=== PATIENT | male | born 1945 | race Caucasian/White ===

== ENCOUNTER 2022-09-28 08:45 | Outpatient (RCR) | payer MEDICARE, BC, SELFPAY ==
[2022-09-28 09:30] LABS: Potassium* 4.2 mmol/L (3.6-5.1)
[2022-09-28 09:32] LABS: Estimated Glomerular Filt Rate 78 ml/min
[2022-09-28 09:33] LABS: Calcium* 9.5 mg/dL (8.4-10.6); Phosphorus* 3.4 mg/dL (2.5-4.5)
== END 2022-09-30 12:39 | disposition home or self-care (01) ==
LOC: LAB 08:45
PROVIDERS: PCP Family Medicine
DX: C91.10 Chronic lymphocytic leukemia of B-cell type not having achieved remission (principal)
CPT/HCPCS: 36415; 82310; 82565; 84100; 84132; 84550

== ENCOUNTER 2025-08-20 18:48 | Emergency (ER) | payer MEDICARE, BC, SELFPAY ==
--- OUTSIDE RECORDS SUMMARY | 2025-08-20 18:50 | XMS_ITS | Encounter Summary ---
Author Organization [facility] Address [address] [place] [address] Care Team Providers Care Wrapping Machine Tender Name Role Phone Elsewhere, Pcp Primary Care Provider Unavailabl e Encounter Details Date Type Department Care Team (Late st Contact Info) Description 01/09/2014 Historical Ophthalmology RST O[facility] Javan Clancy M.D. 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 - 01/09/2014 9:09 AM CDT Eye General CHIEF COMPLAINT 1 month recheck HISTORY OF PRESENT ILLNESS Patient notes extreme improvement over past 2 months! IMPRESSION / REPORT / PLAN #1 Herpes simplex keratitis, right eye Quiet. Plan: ACV 400mg 2x/day for prophylaxis. Prednisolone acetate to 1% 1x/day right eye Recheck in 2-3 months....REFRACT NEXT VISIT. Consider scleral in future? #2 Pterygium, right eye Most likely related to #1, and thus pseudopterygium Close to visual axis, but much less engorged today. Defer surgical intervention at this time. (Might need AMT or tars because of #3) #3 Neurotrophic keratopathy, right eye Absent sensation Discussed. Tear film adequate right now. Observe. #4 Convergence insufficiency Observe for now. #5 Amblyopia, right eye Presumed given #1 began at age 4. DIAGNOSIS #1 Herpes simplex keratitis, right eye #2 Pterygium, right eye #3 Neurotrophic keratopathy, right eye #4 Convergence insufficiency #5 Amblyopia, right eye CDM Reports - EYEGEN Id: [id number] Status: Fnl documented in this encounter Plan of Treatment Not on file documented as of this encounter Visit Diagnoses Not on filedocumented in this encounter Additional Health Concerns Infection Onset Date Last Indicated Resolved Time Protective Environment 02/04/2023 02/04/202311/21 5:00 AM SCREEN PRINTER documented as of this encounter Care Teams Wrapping Machine Tender Relationship Specialty Start Date End Date Elsewhere, Pcp PCP - General Family Medicine 06/24/21 documented as of this encounter
--- OUTSIDE RECORDS SUMMARY | 2025-08-20 18:50 | XMS_ITS | Encounter Summary ---
Author Organization [facility] Address [address] [place] [address] Care Team Providers Care Whipped Topping Supervisor Name Role Phone Elsewhere, Pcp Primary Care Provider Unavailabl e Encounter Details Date Type Department Care Team (Late st Contact Info) Description 07/30/2025 Documentation Department of Neurology in [place], [place] [address] [place] [address] Wolf Mcelroy M.D. [address] [place] [phone] Social History Tobacco Use Types Packs/Day Years Used Date Smoking Tobacco: Never Smokeless Tobacco: Never Alcohol Use Standard Drinks/Week Comments Yes 2 (1 standard drink = 0.6 oz pur e alcohol) [facility] Utilities Answer Date Recorded In the past 12 months has e electric, gas, oil, or water company threatened to shut off services in your home? No 11/25/2024 Humiliation, Afraid, Rape, and Kick questionnair e Answer Date Recorded Within the last year, have y ou been afraid of your partner or ex-partner? No 08/11/2022 Within the last year, have y ou been humiliated or emotionally abused in other ways by your partner or ex-partner? No Within the last year, have y ou been kicked, hit, slapped, or otherwise physically hurt by your partner or ex-partner? No 08/11/2022 Within the last year, have y ou been raped or forced to have any kind of sexual activity by your partner or ex-partner? No 08/11/2022 Hunger Vital Sign Answer Date Recorded Within the past 12 months, y ou worried that your food would run out before you got the money to buy more. Never true 11/25/19 25 Within the past 12 months, t he food you bought just didn't last and you didn't have money to get more. Never true 11/25/2024 PRAPARE - Transportation Answer Date Re corded In the past 12 months, has l ack of transportation kept you from medical appointments or from getting medications? No 11/01 In the past 12 months, has l ack of transportation kept you from meetings, work, or from getting things needed for daily living? No 11/25/2024 Depression Answer Date Recor ded PHQ-9 Total Score (max 27) 3 08/11 Housing Stability Answer Date Recorded What is your living situation today? I have a [facility] place to live 11/25/2024 Education Answer Date Recorded What is the highest level of school you have completed or the highest degree you have received? 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 He will no longer be operating a motor vehicle. documented in this encounter Plan of Treatment Not on file documented as of this encounter Visit Diagnoses Not on filedocumented in this encounter Additional Health Concerns Assessment Noted Time PHQ-9 Depression Total Score: 3 08/11/20 22 9:23 AM CDT documented as of this encounter Care Teams Whipped Topping Supervisor Relationship Specialty Start Date End Date Elsewhere, Pcp PCP - General Family Medicine 06/24/21 documented as of this encounter
--- OUTSIDE RECORDS SUMMARY | 2025-08-20 18:50 | XMS_ITS | Encounter Summary ---
Author Organization [facility] Address [address] [place] [address] Care Team Providers Care Delinquent Account Clerk Name Role Phone Elsewhere, Pcp Primary Care Provider Unavailabl e Encounter Details Date Type Department Care Team (Late st Contact Info) Description 12/04/2013 Historical Ophthalmology [facility]ST O[facility] Javan Clancy M.D. [address] [place] [address] Social History Tobacco Use Types Packs/Day Years Used Date Smoking Tobacco: Never Assessed Sex and Gender Information Value Date Recorded Sex Assigned at Male 03/26/2018 9:59 PM CDT Legal Sex Male 5:22 AM SPECIFICATION MANAGER Gender Identity Male 01/29/2021 9:30 AM CDT Sexual Orientation Straight 05/12/2021 11 :54 AM CDT documented as of this encounter Progress Notes * Javan Clancy M.D. - 12/04/2013 2:33 PM CST Eye General CHIEF COMPLAINT 1 week return right eye HISTORY OF PRESENT ILLNESS Patient return for a 1 week check up on the right eye. Using ACY 4x day for 7 days and then 2x day.PF 2x day right eye only. Significant improvement for the first few days after he was here and then stable since then. Still has some discomfort and redness but better than it was. IMPRESSION / REPORT / PLAN #1 Herpes simplex keratitis, right eye Stromal inflammation improving. Plan: ACV 400mg 2x/day for prophylaxis. Decreased Prednisolone acetate to 1% 1x/day right eye Recheck in 1 month and get SL photos then. Consider scleral in future? #2 Pterygium, right eye Most likely related to #1, and thus pseudopterygium Close to visual axis, but much less engorged today. Defer surgical intervention at this time. (Might need AMT or tars because of #3) #3 Neurotrophic keratopathy, right eye Absent sensation Discussed. Tear film adequate right now. Observe. #4 Convergence insufficiency Observe for now. DIAGNOSIS #1 Herpes simplex keratitis, right eye #2 Pterygium, right eye #3 Neurotrophic keratopathy, right eye #4 Convergence insufficiency CDM Reports - EYEGEN Id: [id number] Status: Fnl documented in this encounter Plan of Treatment Not on file documented as of this encounter Visit Diagnoses Not on filedocumented in this encounter Additional Health Concerns Infection Onset Date Last Indicated Resolved Time Protective Environment 02/04/2023 02/04/202311/21 5:00 AM SPECIFICATION MANAGER documented as of this encounter Care Teams Delinquent Account Clerk Relationship Specialty Start Date End Date Elsewhere, Pcp PCP - General Family Medicine 06/24/21 documented as of this encounter
--- OUTSIDE RECORDS SUMMARY | 2025-08-20 18:50 | XMS_ITS | Encounter Summary ---
Author Organization [facility] Address [address] [place] [address] Care Team Providers Care Software Implementation Specialist Name Role Phone Elsewhere, Pcp Primary Care Provider Unavailabl e Encounter Details Date Type Department Care Team (Late st Contact Info) Description 11/19/2013 Historical Ophthalmology [facility]ST OPH Javan Clancy M.D. [address] [place] [address] Social History Tobacco Use Types Packs/Day Years Used Date Smoking Tobacco: Never Assessed Sex and Gender Information Value Date Recorded Sex Assigned at Male 03/26/2018 9:59 PM CDT Legal Sex Male 5:22 AM HAND COKE DRAWER Gender Identity Male 01/29/2021 9:30 AM CDT Sexual Orientation Straight 05/12/2021 11 :54 AM CDT documented as of this encounter Progress Notes * Javan Clancy M.D. - 11/19/2013 9:34 AM CST Eye General CHIEF COMPLAINT Pterygium right eye HISTORY OF PRESENT ILLNESS History of Herpes Simplex right eye since age [age]. Intermittent irritation right eye over many years. Decreased vision right eye since childhood, worse since pterygium Increased irritation right eyeover the past year, due to pterygium. Pterygium diagnosed in May. Moderate to significant irritation since May, treated by Dr. Laughlin with various medications. Improvement with Prednisolone. Finished last round of Prednisolone last week. Increased redness since stopping prednisolone. Ulceration at edge of pterygium treated with erythromycin and Voltaren, about two weeks ago. Bandage lens worn for a few days. History of dry eyes for the past 3-4 years, primarily uses hot packs and artificial tears. Very light sensitive. Notes eye strain at near for years. This past week has noted diplopia at near, most of the time. 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 VIsion getting worse, and having irritation and light sensitivity in right eye. Recently treated for ulceration with topical steroid and bandage lens. Has active cold sores. IMPRESSION / REPORT / PLAN #1 Pterygium, right eye Most likely related to #2, and thus pseudopterygium Close to visual axis and should be removed, but control #2 first. Might need AMT or tars because of#3. #2 Herpes simplex keratitis, right eye With stromal inflammation....foci at leading edge of pterygium Discussed Plan: ACV 400mg 4x/day for 1 week, then 2x/day for prophylaxis. Prednisolone acetate 1% 2x.day right eye Get SL photos right eye.......Photo Interpretation: Photos confirm and document clinical findings of diagnosis and are of sufficient quality to permit their use to follow disease progression. Recheck in 1 week. #3 Neurotrophic keratopathy, right eye Absent sensation Discussed. Tear film adequate right now. Observe. DIAGNOSIS #1 Pterygium, right eye #2 Herpes simplex keratitis, right eye #3 Neurotrophic keratopathy, right eye CDM Reports - EYEGEN Id: [id number] Status: Fnl documented in this encounter Plan of Treatment Not on file documented as of this encounter Visit Diagnoses Not on filedocumented in this encounter Additional Health Concerns Infection Onset Date Last Indicated Resolved Time Protective Environment 02/04/2023 02/04/202311/21 5:00 AM HAND COKE DRAWER documented as of this encounter Care Teams Software Implementation Specialist Relationship Specialty Start Date End Date Elsewhere, Pcp PCP - General Family Medicine 06/24/21 documented as of this encounter
--- OUTSIDE RECORDS SUMMARY | 2025-08-20 18:50 | XMS_ITS | Clinical Summary ---
Author Organization [facility] Address [address] [place] [address] Care Team Providers Care Process Technician Name Role Phone Marisol Mckeon MD Unavailable Tacho Flores MD Unavailable Valente Murry MD Unavailable [phone] Jay Mcnamara MD Unavailable Unavailable Villa Huddleston MD Unavailable [phone] Alexander Crockett MD Unavailable Elbert Espino MD Primary Care Provider [phone] [facility] [place] Unavailable Allergies Active Allergy Reactions Criticality Noted Date Comments Iodinated Contrast Media Other - Describ e In Comment Field Low 12/13/2012 Medications MULTIVITAMIN TAB take 1 tablet by oral route once daily with food 0 8 Active VITAMIN B COMPLEX TAB one daily 0 9 Active acyclovir (ZOVIRAX) 400 mg tablet Take 400 mg by mouth 2 times daily. 1 Active prednisoLONE acetate 1% ophthalmic (ECONOPRED PLUS, PRED FORTE, OMNIPRED) suspension Place 1 Drop into right eye once daily. 2 Active propylene glycoL (Systane Complete) 0.6 % ophthalmic solution Place into the eye(s). Active fish oil-omega-3 fatty acids 300-1,000 mg Take 1 Capsule by mouth once daily. Active cholecalciferol (Vitamin D) 1,000 unit capsule Take 1,000 units by mouth once daily. Active sertraline (ZOLOFT) 100 mg tabletIndicatio ns:Recurrent major depressive disorder, in partial remission Take 1 Tablet (100 mg) by mouth once daily in the morning. 135 Tablet 4 5 Active traZODone (DESYREL) 50 mg tabletIndicatio ns:Alzheimer's disease (HC) Take 1/2 tab as needed for evening hallucination s. 31 Tablet 1 5 Active cholecalciferol (Vitamin D-3) 2,000 unit capsule 1 08/13/20 25 Discontinu ed(*Medica tion adjustment ) docosanol 10 % (ABREVA) 10 % cream Apply topically to affected area(s) one time if needed. 08/13/20 25 Discontinu ed(*Patien t states no longer taking) sertraline (ZOLOFT) 100 mg tabletIndicatio ns:Recurrent major depressive disorder, in partial remission Take 1 Tablet (100 mg) by mouth once daily in the morning. 90 Tablet 4 5 08/15/20 25 Discontinu ed(*Medica tion adjustment ) famotidine 20 mg tabletIndicatio ns:Bloating,Hyp eractive bowel sounds Take 1 Tablet (20 mg) by mouth two times daily. 90 Tablet 5 08/08/20 25 Discontinu ed(*Med complete/R egimen complete/L evel of care change) Active Problems Problem Noted Date Diagnosed Date Mild dementia 07/24/2025 Alzheimer's disease 07/23/2025 Skin cancer 03/06/2025 Overview (03/06/2025): 05/17/24 - Right Zygomatic Area - SCCis: MOHS completed through [place] Recurrent major depressive disorder, in partial remission 01/02/2025 CLL (chronic lymphocytic leukemia) 01/02/2025 Overview (01/02/2025): In Remission. Because of his CLL, his [facility] Oncologist stated that he would benefit from an infusion for COVID-19 if he gets it. He had bad rebound from Paxlovid. [facility] recommended Remdesivir. Mild cognitive impairment 01/24/2024 Overview (03/28/2024): This was diagnosed at the [facility] in 2021. 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 Laughlin of Optometry prescribes the acyclovir for ocular herpes. Myocardiopathy 01/13/2021 Sleep disturbance 08/30/2019 Routine adult health maintenance 01/21/2015 Overview (01/02/2025): Colonoscopy 12/2014 normal. No follow up recommended. CLL (chronic lymphocytic leukemia) 01/30/2013 Overview (12/08/2022): Diagnosed in about 2011. Doing well as of 12/08/2022. Just 2 more infusions and oral Venetoclax until 08/2023. Tinea versicolor 09/20/2012 Osteoarthritis left ankle 08/04/2011 Hypertrophic obstructive cardiomyopathy 05/20/20 09 Overview (10/18/2023): Cardiomyopathy Hypertrophic Personal history of malignant melanoma of skin 0 03/06/2009 Overview (03/06/2025): malignant melanoma, B[place]low depth of 1.6mm involving the left cheek. The biopsy was in February of 2009 and was reexcised by plastic surgery with negative margins. Resolved Problems Problem Noted Date Diagnosed Date Resolved Date Depression, recurrent 01/12/20212023 Overview (01/12/2021): He has had this since about 2006. He has been on and off Sertraline over the years and just feels better on the Sertraline. Encounters Date Type Department Care Team Description 08/15/2025 8:45 AM CDT Office Visit [facility] [address] [place] [address] Rashad Gordon MD Follow Up (E consult and home health visit) 08/15/2025 Telephone [facility] [address] [place] [address] Elbert Espino MD Appointment Request 08/15/2025 Travel 08/13/2025 10:00 AM CDT Home Care Visit [facility] [address] [place] [address] Pedrito Martinez, PT PT - OASIS START OF CARE 08/13/2025 Telephone [facility] [address] [place] [address] Pedrito Martinez, PT Home Care (One time home care visit and recommendation for outpatient therapy) 08/13/2025 Home Care Visit [facility] [address] [place] [address] Pedrito Martinez, PT EPISODE DISCHARGE 08/13/2025 Plan of Care Documentation [facility] [address] [place] [phone] 08/13/2025 Travel 08/08/2025 9:35 AM CDT Office Visit [facility] [address] [place] [address] Rashad Gordon MD Follow Up (Memory loss, Alzheimer's, seems more anxious) 08/08/2025 E-Consult [facility] [address] [place] [address] Ning Cortes DO 08/07/2025 11:00 AM CDT Office Visit [facility] [address] [place] [address] Rashad Santana PsyD, Family Therapy 08/07/2025 Travel 08/06/2025 Telephone [facility] [address] [place] [address] Rashad Santana PsyD, LP Appointment (08/07 - can be present? ) 08/04/2025 Travel 08/03/2025 Travel 07/26/2025 12:47 PM CDT - 07/26/2025 11:59 PM CDT Hospital Encounter [facility] [place] [address] [facility] [address] [place] [address] Wolf Mcelroy Htet, Viola, OT 07/26/2025 Travel 07/24/2025 11:20 AM CDT Office Visit [facility] [address] [place] [address] Elbert Espino MD Memory Loss (Discuss Alzheimer's progression - hallucinations 2 nights ago) 07/23/2025 2:30 PM CDT Office Visit [facility] [address] [place] [address] Rashad Gordon MD Concerns (Diagnosed with Alzheimer's disease, hallucinations for several nights) 07/23/2025 Travel 06/19/2025 11:00 AM CDT Office Visit [facility] [address] [place] [address] Rashad Santana PsyD, LP Individual Therapy 06/19/2025 Travel 06/17/2025 Travel from Last 3 Months Immunizations Immunization Administration Dates Next Due AMB INFLUENZA IIV3 (AGE 65+ YRS) PF (Flu Clinic Only) 08/03/2019,08/17/2017 Amb Influenza, Inact (High-d ose) (Flu Clinic Only) 08/20/2014 Amb Influenza, Inactivated A IIV4 (Age 65+ Years) Preserv Free 08/05/2020 COVID-19 vaccine ([employer] 30mcg/0.3mL) PFMDV 01/07/2021,12/17/2020 DTaP 05/08/2008 Hepatitis A (Adult) 01/30/2010,02/06/2002 Hepatitis B (Adult) 10/01/2002,03/09/2002,2001 Inactivated Polio Vaccine 02/06/2002 Influenza, High-dose Inactivated 024,08/19/2016,08/19/2015,08/20,07/10/2013 Influenza, High-dose Quadriv alent Inactivated 09/02/2023,08/19/2022,08/01/2021 Influenza, IIV3 (Age >=3 years) 07/25/2013,10/06 Influenza, Inactivated IIV3 (Age 65+ Years) Preserv Free 08/10/2018,08/17/2017 Pneumococcal Poly,23-Valent (Pneumovax) 01/30/2013 Pneumococcal conj 13-Valent (Prevnar 13) 09/19/2014 Pneumococcal, Unspecified 07/17/2013 RSV, Recombinant ADJ Reconst ituted (Arexvy 120MCG/0.5mL) 09/13/2023 Td (Age >=7 Years) 02/22/2018 Tdap 05/08/2008 Typhoid (injectable) 02/06/2002 Zoster (Shingrix-RZV, recombinant) 10/26/2019, Family History Medical History Relation Name Comments Alzheimer's disease Father at 90 Cancer-prostate Father Hypertension Mother Parkinsonism Mother other Mother in her 80s of unknown cause. Cancer Sister thyroid - resol deep Relation Name Status Comments Father (Age 90) Maternal Aunt Mother (Age 84) Sister Alive Social History Tobacco Use Types Packs/Day Years Used Date Smoking Tobacco: Never Passive Smoke Exposure: Never Smokeless Tobacco: Never Tobacco Cessation:Counseling Given: Yes Alcohol Use Standard Drinks/Week Comments Not Currently 0 (1 standard drink = 0.6 oz pur e alcohol) every other week PHQ-2 Answer Date Recorded PHQ-2 TOTAL SCORE 2 08/08/2025 Social Connections Answer Date Recorded Do you often feel lonely or isolated from those around you? 0 04/24/2025 Alcohol Use Answer Date Recorded How often do you have a drink containing alcohol ? 1 08/08/2025 How many drinks containing a lcohol do you have on a typical day when you are drinking? 0 08/08/2025 How often do you have five or more drinks on one occasion? 0 08/08/2025 Financial Resource Strain Answer Date R ecorded Difficulty of Paying Living Expenses 3 04/24/2025 Difficulty of Paying Living Expenses Not on file 04/24/2025 Food Insecurity Answer Date Recorded Do you worry your food will run out before you are able to buy more? 1 04/24/2025 Transportation Needs Answer Date Record ed Does lack of transportation keep you from medica l appointments? 1 04/24/2025 Does lack of transportation keep you from work, meetings or getting things that you need? 1 04/24/2025 Housing Stability Answer Date Recorded What is your housing situation today? 1 04/24/2025 Utilities Answer Date Recorded Do you have trouble paying f or utilities (for example, heat, electricity, water, phone)? 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 Not on file Not on file Not on sharon e Obstetrics History Last Filed Vital Signs Vital Sign Reading Time Taken Comments Blood Pressure 114/70 08/15/2025 8:48 AM CDT Pulse 46 08/15/2025 8:48 AM CDT Temperature 36.9 C (98.5 F) 08/13/2025 10:05 AM CDT Respiratory Rate 18 08/13/2025 10:05 AM CDT Oxygen Saturation 98% 08/15/2025 8:48 AM CDT Inhaled Oxygen Concentration - - Weight 80.6 kg (177 lb 9.6 oz) 08/15/2025 8:48 A M CDT Height 176.8 cm (5' 9.6) 08/15/2025 8:48 AM CDT Body Mass Index 25.78 08/15/2025 8:48 AM CDT Plan of Treatment Upcoming Encounters Date Type Department Care Team (Late st Contact Info) Description 08/29/2025 9:35 AM CDT Office Visit [facility] [address] [facility] [address] Rashad Gordon MD [address] [place] [address] 09/11/2025 11:15 AM NURSE LDR Office Visit [facility] [address] [address] Maria Fernanda Cain, [address] [place] [address] 10/04/2025 10:05 AM NURSE LDR Office Visit [facility] [address] [place] [address] Elbert Espino MD [address] [place] [address] 01/01/2026 8:45 AM NURSE LDR Orders Only [facility] [address] [place] [address] Meche Harris 01/07/2026 8:45 AM CDT Office Visit [facility] [address] [place] [address] Elbert Espino MD [address] [place] [address] Health Maintenance Due Date Last Done Comments COVID-19 vaccine series (2024- season) 2025 03/27/2025, 07/23/2024, 02/08/2024, Additional history exists Influenza Vaccine (#1) 2025 , 08/05/2020, 08/03/2019, Additional history exists Medicare Wellness for age 65+ 01/03/2026, 02/01/2024, 12/08/2022, Additional history exists Depression screening for age 12+ 08/08/2026 08/08/2025, 01/02/2025, 03/28/2024, Additional history exists BMI (ht and wt on same day) for age 18+ 08/15/2026 08/15/2025, 08/08/2025, 07/23/2025, Additional history exists Tetanus booster 02/23/2028 02/22/2018, 05/08/2008 Hepatitis B series for 19+ Completed 10/01, 03/09/2002, 02/06/2002 Pneumococcal series for age 50+ Completed 09/19/2014, 07/17/2013, 01/30/2013 Zoster (shingles) series for age 50+ Completed 10/26/2019, 08/15/2019 RSV vaccine for adults or Completed 09/13/2023 Procedures Procedure Name Priority Date/Time Associated Diagnosis Comments URINE CULTURE Routine 07/23/2025 3:10 PM CDT Dysuria URINALYSIS MICROSCOPIC Routine 07/23/2025 3:10 PM CDT Dysuria URINALYSIS MACROSCOPIC - [facility] ONLY POC DIP (QUEST) Routine 07/23/2025 3:10 PM CDT Dysuria from Last 3 Months Results * (ABNORMAL) POCT Urinalysis Dipstick Only (07/23/2025 3:10 PM CDT) SPECIFIC GRAVITY 1.025 1.001 - 1.035 07/23/2025 3:18 PM CDT [facility] PROTEIN NEGATIVE NEGATIVE 07/23/2025 3:18 PM CDT [facility] GLUCOSE NEGATIVE NEGATIVE 07/23/2025 3:18 PM CDT [facility] KETONES TRACE(A) NEGATIVE 07/23/2025 3:18 PM CDT [facility] BILIRUBIN NEGATIVE NEGATIVE 07/23/2025 3:18 PM CDT [facility] OCCULT BLOOD NEGATIVE NEGATIVE 07/23/2025 3:18 PM CDT [facility] NITRITE NEGATIVE NEGATIVE 07/23/2025 3:18 PM CDT [facility] PH 6.0 5.0 - 8.0 07/23/2025 3:18 PM CDT [facility] LEUKOCYTE ESTERASE 1+(A) NEGATIVE 07/23/2025 3:18 PM CDT [facility] Urine URINE SPECIMEN / Unknown Non-Blood / Unknown 07/23/2025 3:10 PM CDT 07/23/2025 3:11 PM CDT Rashad Gordon MD URINE Final Re sult [facility] [address] [place] [address], [place] [phone] [facility] [address] [place] [address], [place] [phone] * (ABNORMAL) URINALYSIS MICROSCOPIC (07/23/2025 3:10 PM CDT) RBC 0-2 0-2, None Seen /HPF 07/24/2025 2:12 AM CDT [facility] WBC 11-25(A) 0-2, 3-5, None Seen /HPF 07/24/2025 2:12 AM CDT [facility] BACTERIA Few None Seen, Rare, Few Bacteria/ HPF 07/24/2025 2:12 AM CDT [facility] EPITHELIAL CELLS Moderate(A ) None Seen, Few Epi/HPF 07/24/2025 2:12 AM CDT [facility] HYALINE CASTS 0-2 0-2, 3-5 /LPF 07/24/2025 2:12 AM CDT [facility] CALCIUM OXALATE CRYSTALS Present(A) (none) 07/24/2025 2:12 AM CDT [facility] Urine URINE SPECIMEN / Unknown Non-Blood / Unknown 07/23/2025 3:10 PM CDT 07/23/2025 3:11 PM CDT Rashad Gordon MD URINE Final Re sult [facility] [address] [place] [id number], * URINE CULTURE (07/23/2025 3:10 PM CDT) CULTURE <10,000 CFU/mL multiple organisms 07/25/2025 9:05 AM CDT [facility] Urine URINE SPECIMEN / Unknown Non-Blood / Unknown 07/23/2025 3:10 PM CDT 07/23/2025 3:11 PM CDT us Rashad Gordon MD MICROBIOLOGY Final Re sult [facility] [address] [place] [phone], [place] from Last 3 Months Insurance MEDICARE PPS [facility] MEDICARE PB ONLY [facility] MEDICARE PART B HB ONLY Advance Directives Documents on File Type Date Recorded Patient Stone Carver Expl anation Healthcare Directive 11/23/2024 10:24 AM s igned 09/10/24 Healthcare Directive 06/14/2018 2:00 PM HE ALTHCARE DIRECTIVE, [facility], 01/11/08 Care Teams Process Technician Relationship Specialty Start Date End Date Elbert Espino MD [address] [place] [address] PCP - General Family Practice 10/07/20 Marisol Mckeon MD Plastic and Reconstructive Surgery 04/15/11 Tacho Flores MD [address] [facility] [place] [address] Sports Medicine 04/15/11 Valente Murry MD [address] [facility] [address] ENT 04/15/11 Anders, Jay Villanueva MD [address] [place] [address] Internal Medicine 01/30/13 Villa Huddleston MD [address] [facility] [place] [address] Dermatology 01/30/13 Alexander Crockett MD [address] [facility] [address] ENT 01/30/13 [facility] [address] [place] [address] 08/09/25
--- OUTSIDE RECORDS SUMMARY | 2025-08-20 18:50 | XMS_ITS | Encounter Summary ---
Author Organization [facility] Address [address] [place] [address] Care Team Providers Care Performance Manager Name Role Phone Elsewhere, Pcp Primary Care Provider Unavailabl e Encounter Details Date Type Department Care Team (Late st Contact Info) Description 06/12/2014 Historical Ophthalmology [facility] John Napoles Social History Tobacco Use Types Packs/Day Years Used Date Smoking Tobacco: Never Assessed Sex and Gender Information Value Date Recorded Sex Assigned at Male 03/26/2018 9:59 PM CDT Legal Sex Male 5:22 AM QUALITY IMPROVEMENT CONSULTANT Gender Identity Male 01/29/2021 9:30 AM CDT Sexual Orientation Straight 05/12/2021 11 :54 AM CDT documented as of this encounter Progress Notes * John Napoles - 06/12/2014 10:00 AM CDT Contact Lens Exam MULTI-VISIT DOCUMENT This document contains multiple patient visits and is available for review in Document Viewer. CDM Reports - EYECL Id: [id number] Status: Fnl documented in this encounter Plan of Treatment Not on file documented as of this encounter Visit Diagnoses Not on filedocumented in this encounter Additional Health Concerns Infection Onset Date Last Indicated Resolved Time Protective Environment 02/04/2023 02/04/202311/21 5:00 AM QUALITY IMPROVEMENT CONSULTANT documented as of this encounter Care Teams Performance Manager Relationship Specialty Start Date End Date Elsewhere, Pcp PCP - General Family Medicine 06/24/21 documented as of this encounter
--- OUTSIDE RECORDS SUMMARY | 2025-08-20 18:50 | XMS_ITS ---
Author Organization [facility] Address [address] [place] [address] Care Team Providers Care Project Scientist Name Role Phone Elsewhere, Pcp Primary Care Provider Unavailabl e Active Problems * This document contains information received from the source organization and may not represent a complete record from that organization. 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 11/29/2024 Reaction Drug Adverse Initial 09/07/2022 Encounter Admission For Chemotherapy 08/23/2022 Other Waiter/Waitress Buffet Current Drug Therapy 08/20/2022 Encounter For Antineoplastic Chemotherapy 2021 Screening Examination For Viral Disease 08/20/20 22 Anemia 06/07/2022 Thrombocytopenia 03/06/2020 Chronic Lymphocytic Leukemia Of B Cell Type Not Having Achieved Remission 12/27/2012 Cardiomyopathy Obstructive Hypertrophic 05/20/20 09 Overview (03/22/2017): Cardiomyopathy Hypertrophic Melanoma Personal History 03/06/2009 Current Treatment and Therapy Plans No current plan information found. Past Treatment and Therapy Plans Flushes/Hydration Plan Name Start Date Discontinue Date Treatment Medications Discontinue Reason Plan Provider VASCULAR ACCESS PATENCY - PERIPHERAL INTRAVENOUS CATHETER AND RAPID INFUSION CATHETER 09/07/2022 09/01/2023 No medications scheduled. Therapy Complete - Hematology / Oncology Treatment 1 Plan Name Start Date Discontinue Date Treatment Medications Discontinue Reason Plan Provider Cycles Obinutuzumab (Split Dose) / Venetoclax 09/06/2004/23/2024 obinutuzumab (Gazyva)veneto clax (Venclexta) Discontinuation of Plans with No Action >1 year-System Maintenance Matty Springer M.D. 6 of 7 cycles started Infusion Therapy 1 Plan Name Start Date Discontinue Date Treatment Medications Discontinue Reason Plan Provider TIXAGEVIMAB-CILGAV IMAB (EVUSHELD) - EMERGENCY USE AUTHORIZATION 09/20/2022 09/20/2022 No medications scheduled. Patient Preference Matty Springer M.D. Resolved Problems Problem Noted Date Diagnosed Date Resolved Date Clinical Research Exam 03/30/201803/06
--- OUTSIDE RECORDS SUMMARY | 2025-08-20 18:50 | XMS_ITS | Encounter Summary ---
Author Organization [facility] Address [address] [place] [address] Care Team Providers Care Neonatal Pediatric Nurse Name Role Phone Elsewhere, Pcp Primary Care Provider Unavailabl e Encounter Details Date Type Department Care Team (Late st Contact Info) Description 03/20/2014 Historical Ophthalmology [facility] Javan Clancy M.D. [address] [place] [address] Social History Tobacco Use Types Packs/Day Years Used Date Smoking Tobacco: Never Assessed Sex and Gender Information Value Date Recorded Sex Assigned at Male 03/26/2018 9:59 PM CDT Legal Sex Male 5:22 AM FEDERAL JUDICIAL LAW CLERK Gender Identity Male 01/29/2021 9:30 AM CDT Sexual Orientation Straight 05/12/2021 11 :54 AM CDT documented as of this encounter Progress Notes * Javan Clancy M.D. - 03/20/2014 9:26 AM CDT Eye General CHIEF COMPLAINT recheck HSV right eye HISTORY OF PRESENT ILLNESS Patient notes that things are about the same as when he was last here. Does not that he is red in the mornings until the PF goes in and has slight watering at night as well. He gets some diplopia both with the glasses and without and was told that this is in part due to the right eye. IMPRESSION / REPORT / PLAN #1 Herpes simplex keratitis, right eye Quiet. Plan: ACV 400mg 2x/day for prophylaxis. Prednisolone acetate to 1% 1x/ every other day right eye Recheck in 3 months.... get RGP over-refraction. #2 Pterygium, right eye Most likely related [...] right eye CDM Reports - EYEGEN Id: [id number] Status: Fnl documented in this encounter Plan of Treatment Not on file documented as of this encounter Visit Diagnoses Not on filedocumented in this encounter Additional Health Concerns Infection Onset Date Last Indicated Resolved Time Protective Environment 02/04/2023 02/04/202311/21 5:00 AM FEDERAL JUDICIAL LAW CLERK documented as of this encounter Care Teams Neonatal Pediatric Nurse Relationship Specialty Start Date End Date Elsewhere, Pcp PCP - General Family Medicine 06/24/21 documented as of this encounter
--- OUTSIDE RECORDS SUMMARY | 2025-08-20 18:50 | XMS_ITS | Encounter Summary ---
Author Organization [facility] Address [address] [place] [address] Care Team Providers Care Warper Fixer Name Role Phone Elsewhere, Pcp Primary Care Provider Unavailabl e Encounter Details Date Type Department Care Team (Late st Contact Info) Description 06/12/2014 Historical Ophthalmology [facility] Javan Clancy M.D. [address] [place] [address] Social History Tobacco Use Types Packs/Day Years Used Date Smoking Tobacco: Never Assessed Sex and Gender Information Value Date Recorded Sex Assigned at Male 03/26/2018 9:59 PM CDT Legal Sex Male 5:22 AM EXERCISE PLANNER Gender Identity Male 01/29/2021 9:30 AM CDT Sexual Orientation Straight 05/12/2021 11 :54 AM CDT documented as of this encounter Progress Notes * Javan Clancy M.D. - 06/12/2014 9:46 AM CDT Eye General CHIEF COMPLAINT recheck HSV right eye HISTORY OF PRESENT ILLNESS Patient denies vision changes. Denies ocular discomfort. IMPRESSION / REPORT / PLAN #1 Herpes simplex keratitis, right eye Quiet. RGP over-refraction gave 20/50. Plan: ACV 400mg 2x/day for prophylaxis. Prednisolone acetate to 1% 1x/ every other day right eye. Discussed contact lens risks and benefits....he will call if wants to proceed. Recheck in 6 months with me. #2 Pterygium, right eye Most likely related [...] Presumed given #1 began at age 4. RGP over-refraction, 20/50. DIAGNOSIS #1 Herpes simplex keratitis, right eye #2 Pterygium, right eye #3 Neurotrophic keratopathy, right eye #4 Convergence insufficiency #5 Amblyopia, right eye CDM Reports - EYEGEN Id: [id number] Status: Fnl documented in this encounter Plan of Treatment Not on file documented as of this encounter Visit Diagnoses Not on filedocumented in this encounter Additional Health Concerns Infection Onset Date Last Indicated Resolved Time Protective Environment 02/04/2023 02/04/202311/21 5:00 AM EXERCISE PLANNER documented as of this encounter Care Teams Warper Fixer Relationship Specialty Start Date End Date Elsewhere, Pcp PCP - General Family Medicine 06/24/21 documented as of this encounter
--- OUTSIDE RECORDS SUMMARY | 2025-08-20 18:50 | XMS_ITS | Clinical Summary ---
Author Organization [facility] Address [address] [place] [address] Care Team Providers Care Credit Authorizer Name Role Phone Elsewhere, Pcp Primary Care Provider Unavailabl e Source Comments Patient records contain information from all sites at [facility]. For routine questions regarding patient records, call [phone] during business hours, M-F 8:00 AM - 5:00 PM Central Time. Record requests for emergency care only can be directed to [phone] at any time.[facility] Allergies Active Allergy Reactions Criticality Noted Date Comments Iodinated Contrast Media Other (see comments) Low 0 12/13/2012 Medications * This document contains information received from the source organization and may not represent a complete record from that organization. acyclovir (for_ZOVIRAX) 400 mg tablet Take 1 tablet by mouth 2 (two) times a day. 6 Active VITAMIN B COMPLEX (B COMPLEX-VITAMIN B12 ORAL) Take 1 tablet by mouth daily. 3 Active multivitamin capsule Take 1 tablet by mouth daily. 3 Active cholecalciferol , vitamin D3, 25 mcg (1,000 Unit) tablet Take 1 tablet by mouth daily. 7 Active prednisoLONE acetate (PRED FORTE) 1 % ophthalmic suspension Administer 1 drop into the right eye 3 (three) times a day. 5 Active docosanoL (ABREVA) 10 % cream Apply 1 application topically as needed. For cold sores Active sertraline (ZOLOFT) 100 mg tablet Take 100 mg by mouth daily. 4 Active omega-3 fatty acids-fish oil 300-1,000 mg per capsule Take 1 capsule by mouth daily. 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 11/29/2024 Reaction Drug Adverse Initial 09/07/2022 Encounter Admission For Chemotherapy 08/23/2022 Other Intermediate Current Drug Therapy 08/20/2022 Encounter For Antineoplastic Chemotherapy 2021 Screening Examination For Viral Disease 08/20/20 22 Anemia 06/07/2022 Thrombocytopenia 03/06/2020 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 Date Type Department Care Team Description 07/30/2025 Documentation Department of Neurology in [place], [place] [address] [place] [address] Wolf Mcelroy M.D. 06/26/2025 2:00 PM CDT Telemedicine Department of Neurology in [place], [place] [address] [place] [address] Wolf Mcelroy M.D. Karime Bui, R.N. Impairment Cognitive Mild (Primary Dx); Dementia (HCC); Alzheimer's Disease (HCC) 06/06/2025 1:00 PM CDT Office Visit Division of Hematology in [place], [place] [address] [place] [phone] Amber Crespo APRN, C.N.P., D.N.P. 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 (HCC) Discharge Disposition: Home or Self Care 06/04/2025 10:30 AM CDT Clinical Communication Virtual Review in [place], [place] [address] [place] [address] Pre-visit Intake from Last 3 Months Immunizations Immunization Administration Dates Next Due DTaP (Infanrix, Tripedia) 05/08/2008 Influenza Split 08/20/2014,07/10/2013 PCV13 09/19/2014 Pneumococcal, Unspecified 07/17/2013 SARS-COV-2 (COVID-19) - PFIZ ER (Discontinued)(12 years or older) 06/24/2021 Tdap 05/08/2008 Family History Medical History Relation Name Comments Dementia Father Juan Wylie Alzheimer's Lymphoma Father Juan Wylie may have had n on-hodkins lymphoma, not sure Prostate cancer Father Juan Wylie Skin cancer Father Juan Wylie not melanoma Leukemia Father's Brother Corey Wylie Colon polyps Mother Sita Wylie Hypertension Mother Sita Wylie Osteoporosis Mother Sita Wylie Sleep apnea Sister Clarice Bell Thyroid cancer Sister Clarice Bell 1972_+/- Thyroid disease Sister Clarice Bell Relation Name Status Comments Father Juan Wylie Father's Brother Corey Wylie Mother Sita Wylie Sister Clarice Bell Social History Tobacco Use Types Packs/Day Years Used Date Smoking Tobacco: Never Smokeless Tobacco: Never Alcohol Use Standard Drinks/Week Comments Yes 2 (1 standard drink = 0.6 oz pur e alcohol) [facility] Utilities Answer Date Recorded In the past 12 months has [employer], [employer], oil, or water company threatened to shut [...] your living situation today? I have a [facility] place to live 11/25/2024 Education Answer Date Recorded What is the highest level of school you have completed or the highest degree you have received? 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 Gender Identity Male 01/29/2021 9:30 AM CDT Sexual Orientation Straight 05/12/2021 11 :54 AM CDT Last Filed Vital Signs Vital Sign Reading Time Taken Comments Blood Pressure 112/67 06/06/2025 12:51 PM CDT Pulse 57 06/06/2025 12:51 PM CDT Temperature 36.4 C (97.6 F) 06/06/2025 12:51 PM CDT Respiratory Rate 16 09/08/2022 2:14 PM DRY HEAT CABINET ATTENDANT Oxygen Saturation 100% 09/07/2022 11:00 AM DRY HEAT CABINET ATTENDANT Inhaled Oxygen Concentration - - Weight 83.7 kg (184 lb 8.4 oz) 06/06/2025 12:51 PM CDT Height 179 cm (5' 10.47) 06/06/2025 12:51 PM CD T Body Mass Index 26.12 06/06/2025 12:51 PM CDT Plan of Treatment Health Maintenance Due Date Last Done Comments IPV Vaccines (2 of 3 - Adult catch-up series) 03/06/2002 02/06/2002 Fall Risk Screen (Annual) 10/31/2024 COVID-19 Vaccine ( season) 2025 03/27/2025, 07/23/2024, 02/08/2024, Additional history exists Influenza Vaccine (#1) 2025 , 09/02/2023, 08/19/2022, Additional history exists DTaP,Tdap,and Td Vaccines (4 - Td or Tdap) 02/23/2028 02/22/2018, 05/08/2008, 05/08/2008 Pneumococcal vaccine (50+ years) Completed 09/19/2014, 07/17/2013, 01/30/2013 Zoster Vaccines Completed 10/26/2019, 08/15/2019 RSV vaccine - (32-36 weeks) or 50+ years Completed 09/13/2023 HPV Vaccines Aged Out No longer eligi ble based on patient's age to complete this topic Medical Devices Implanted Type Area Continuous Improvement Consultant Device Identifier Shelf Expiration Date Model / Serial / Lot Powder [employer] 2cc Syringe - Chavarria [id number] Implanted:Qty: 1 on 01/15/2013 Mesh or Patch Right: Other/Legacy - See Implant Description Gift Card Combo (Use Allergan) Description:Device Manufactu rer - [employer] Mark. Body Location - Right. Device Status Text - [id number]. 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 (HCC) CBC WITH DIFFERENTIAL, B Routine 025 11:20 AM CDT 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 (HCC) BILIRUBIN, TOT, S/P Routine 06/06/2025 1 1:20 AM CDT 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 (HCC) ASPARTATE AMINOTRANSFERASE (AST), S/P Routine 06/06/2025 11:20 AM CDT 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 (HCC) ALKALINE PHOSPHATASE, S/P Routine 06/06/2025 11:20 AM CDT 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 (HCC) from Last 3 Months Results * (ABNORMAL) Reticulocyte Profile (06/06/2025 11:20 AM CDT) Pathologist [facility] [place] Reticulocytes, B 0.83 0.60 - 2.71 % 06/06/2025 11:47 AM CDT DTL Absolute Reticulocyte 32.8 30.4 - 110.9 x10(9)/L 06/06/2025 11:47 AM CDT DTL Immature Reticulocyte Fraction 4.4 2.3 - 13.4 % 06/06/2025 11:47 AM CDT DTL Reticulocyte Hemoglobin 37.0 30.0 - 37.6 pg 06/06/2025 11:47 AM CDT DTL Erythrocytes 3.95(L) 4.35 - 5.65 x10(12)/L 06/06/2025 11:47 AM CDT DTL Blood (Blood, Venous) 06/06/2025 11:20 AM CDT 06/06/2025 11:47 AM CDT Jovanni Colunga APRNN.P., M.S. LAB BLOOD ADD-O N Final Result [facility] [address] [place] [address], [facility] [address] [place] [address] * (ABNORMAL) CBC with Differential, Blood (06/06/2025 11:20 AM CDT) Hemoglobin 12.6(L) 13.2 - 16.6 g/dL 06/06/2025 11:47 AM CDT DTL Hematocrit 38.3 38.3 - 48.6 % 06/06/2025 11:47 AM CDT DTL Erythrocytes 3.95(L) 4.35 - 5.65 x10(12)/L 06/06/2025 11:47 AM CDT DTL MCV 97.0 78.2 - 97.9 fL 06/06/2025 11:47 AM CDT DTL RBC Distrib Width 12.4 11.8 - 14.5 % 06/06/2025 11:47 AM CDT DTL Platelet Count 134(L) 135 - 317 x10(9)/L 06/06/2025 11:47 AM CDT DTL Leukocytes 4.4 3.4 - 9.6 x10(9)/L 06/06/2025 11:47 AM CDT DTL Neutrophils 2.64 1.56 - 6.45 x10(9)/L 06/06/2025 11:47 AM CDT DHPM Lymphocytes 0.88(L) 0.95 - 3.07 x10(9)/L 06/06/2025 11:47 AM CDT DTL Monocytes 0.53 0.26 - 0.81 x10(9)/L 06/06/2025 11:47 AM CDT DTL Eosinophils 0.34 0.03 - 0.48 x10(9)/L 06/06/2025 11:47 AM CDT DTL Basophils <0.03 0.01 - 0.08 x10(9)/L 06/06/2025 11:47 AM CDT DTL Blood (Blood, Venous) 06/06/2025 11:20 AM CDT 06/06/2025 11:47 AM CDT us Leah Colunga APRN.N.Yue., M.S. LAB BLOOD ADD-O N Final Result Performing Organization Address City/[facility]/[place] [address] * AST (Aspartate Aminotransferase) (06/06/2025 11:20 AM CDT) Aspartate Aminotransferase (AST), S 22 8 - 48 U/L 06/06/2025 1:10 PM CDT DTL Blood (Blood, Venous) 06/06/2025 11:20 AM CDT 06/06/2025 12:32 PM CDT Leah Colunga APRN.N.P., M.S. LAB [place] [address] * Alkaline Phosphatase (06/06/2025 11:20 AM CDT) Alkaline Phosphatase, S 53 40 - 129 U/L 06/06/2025 1:10 PM CDT DTL Blood (Blood, Venous) 06/06/2025 11:20 AM CDT 06/06/2025 12:32 PM CDT Nasrin Hutchinson APRN, C.N.P., M.S. LAB BLOOD ADD-O N Final Result Performing Organization Address City/[facility]/ZIP Co de Phone Number [facility] [address] [place] [address] * LD (Lactate Dehydrogenase) (06/06/2025 11:20 AM CDT) Lactate Dehydrogenase (LD), S 176 122 - 222 U/L 06/06/2025 1:10 PM CDT DT Blood (Blood, Venous) 06/06/2025 11:20 AM CDT 06/06/2025 12:32 PM CDT Jovanni Colunga APRNNJessica., M.S. LAB BLOOD NON A DD-ON Final Result Performing Organization Address [facility] de Phone Number [facility] [address] [place] [address] * (ABNORMAL) Immunoglobulin G (IgG) (06/06/2025 11:20 AM CDT) Immunoglobulin G (IgG), S 623(L) 767 - 1590 mg/dL 06/06/2025 4:52 PM CDT [facility] Blood (Blood, Venous) 06/06/2025 11:20 AM CDT 06/06/2025 3:07 PM CDT us Jovanni Colunga APRNN.Yue., M.S. LAB BLOOD ADD-O N Final Result Performing Organization Address City/[facility]/ZIP Co de Phone Number [facility] [address] [place] [address] [place] [address] * Creatinine with Estimated GFR (06/06/2025 11:20 AM CDT) Creatinine 1.00 0.74 - 1.35 mg/dL 06/06/2025 1:10 PM CDT DTL Estimated GFR (eGFR) 77 >=60 mL/min/BSA 06/06/2025 1:10 PM CDT DTL Comment: Estimated GFR calculated using the 2020 CKD_EPI creatinine equation. Blood (Blood, Venous) 06/06/2025 11:20 AM CDT 06/06/2025 12:32 PM CDT us Leah Colunga APRN.N.P., M.S. LAB BLOOD ADD-O N Final Result Performing Organization Address City/[facility]/ZIP Co de Phone Number [facility] [address] [place] [address], [facility] [address] [place] [address] * Bilirubin, Total (06/06/2025 11:20 AM CDT) Bilirubin, Total, S 0.5 0.0 - 1.2 mg/dL 06/06/2025 1:10 PM CDT DTL Blood (Blood, Venous) 06/06/2025 11:20 AM CDT 06/06/2025 12:32 PM CDT us Nasrin Hutchinson APRN C.N.P., M.S. 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 See document viewer. Healthcare Agents on File Name Relationship Healthcare Agent Relationship Communication Liat Wylie Spouse Health Care Agent [email or web address] Ana Wylie Daughter First Alternate Health Care Agent [email or web address] Wylie Son Second Alternate Health Care Agent [email or web address] Credit Authorizer Relationship Specialty Start Date End Date Elsewhere, Pcp PCP - General Family Medicine 06/24/21
--- OUTSIDE RECORDS SUMMARY | 2025-08-20 18:50 | XMS_ITS | Encounter Summary ---
Author Organization [facility] Address [address] [place] [address] Care Team Providers Care Site Director Name Role Phone Elsewhere, Pcp Primary Care Provider Unavailabl e Encounter Details Date Type Department Care Team (Late st Contact Info) Description 12/09/2014 Historical Ophthalmology [facility] Javan Clancy M.D. 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 - 12/09/2014 12:57 PM CST Eye General CHIEF COMPLAINT recheck HSV right eye HISTORY OF PRESENT ILLNESS His right eye has been good lately, no flare ups. Does not have any double lately, can bring them back together if he does occasionally get the double, Went to local OD about 10 days ago for new floaters and things were fine with his retina. SCB: Double vision has resolved. Right eye seems improved. Developed floaters in left eye and seen by local provider found to be normal. IMPRESSION / REPORT / PLAN #1 Herpes simplex keratitis, right eye Quiet. RGP over-refraction gave 20/50. Plan: Continue ACV 400mg 2x/day for prophylaxis. Prednisolone acetate to 1% 1x/ every other day right eye. Recheck in [address] Laughlin (letter); see me in 12 months, sooner if having new symptoms. 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
--- OUTSIDE RECORDS SUMMARY | 2025-08-20 18:50 | XMS_ITS | Encounter Summary ---
Author Organization [facility] Address [address] [place] [address] Care Team Providers Care Edge Finisher Name Role Phone Elsewhere, Pcp Primary Care Provider Unavailabl e Encounter Details Date Type Department Care Team (Late st Contact Info) Description 12/01/2015 Historical Ophthalmology [facility] Javan Clancy M.D. 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 - 12/01/2015 12:45 PM CST Eye General CHIEF COMPLAINT Yearly recheck HSV right eye. HISTORY OF PRESENT ILLNESS No discomfort right eye. Doing well. Vision stable both eyes, distance and near in the past year. Notes ongoing mild discomfort left eye, foreign body sensation. Spots of distorted vision, possibly, left eye. History of blepharitis. Uses daily warm compresses and lubricating drops. Occasional trichi asis. 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 Left eye novoa excessively when out in the cold and wind. IMPRESSION / REPORT / PLAN #1 Herpes simplex keratitis, right eye Quiet. RGP over-refraction gave 20/50. Plan: Continue ACV 400mg 2x/day for prophylaxis. Prednisolone acetate to 1% 1x/ every other day right eye. Recheck in 6-[address] Laughlin (letter); see me as needed per Dr. Laughlin. 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
[2025-08-20 19:22] VITALS: BP 160/88; PULSE 51; RESP 16; TEMP 36.9; O2SAT 96; BMI 25.0
--- NOTE | 2025-08-20 21:54 | ED.GENADULT ---
HPI - General Adult General Time Seen by Provider: 21:54 Date Seen: 08/20/25 Chief complaint: Psychiatric Problem/Disorder Stated complaint: Alzheimers--psychotic episode Time Seen by Provider: 08/20/25 21:54 Source: patient and family Mode of arrival: ambulatory History of Present Illness HPI narrative: Otto is a 80 year male who presents the emergency department for mental health evaluation. Patient presents tonight with his , daughter. Reports history of Alzheimer's dementia and presents today with worsening/increasing episodes agitation. reports that this afternoon around 1600 patient had an episode over a she has at home. Patient got extremely tense, agitated, and difficulty with conflicting realities. Episodes last approximately 3 hours when and daughter brought him to the emergency department. Patient comes down upon arrival to the emergency department. Family is concerned that if he goes home he will continue to become agitated. States that typically is episodes in the morning and the evening. Patient recently saw geriatric psych on 08/15/2025 and at that time they recommend increasing his sertraline to 150 mg daily (from 100 mg) and started on half a tablet of trazodone at that time (25 mg). Patient is going to start occupational therapy/rehab starting in August. Other recommendations per geriatric psych was to start olanzapine or Abilify if the prior medications are not successful or happen more frequently during daytime hours. They have a follow-up appointment in 2 weeks to review progress. Family reports feeling safe at home with the patient. Patient also feel safe, denies any suicidal, homicidal velazquez, intent to self-harm. Related Data Home Medications ?Medication ?Instructions ?Recorded ?Confirmed acyclovir 400 mg tablet 400 mg PO BID 07/04/25 07/04/25 prednisolone acetate 1 % eye drp ophthalmic (eye) 07/04/25 07/04/25 drops,suspension sertraline 100 mg tablet 100 mg PO QAM 07/04/25 07/04/25 Allergies Allergy/AdvReac Type Severity Reaction Status Date / Time No Known Drug Allergies Allergy Verified 07/04/25 17:11 Review of Systems Narrative: Past medical history, past surgical history, medications, allergies, family history, and social history were reviewed with the patient. No additional pertinent items. A medically appropriate review of systems was performed with pertinent positives and negatives noted in HPI, all other systems negative. PFSH PFSH Social History Smoking Status: Never smoker Do you use any of these nicotine containing products: None How often do you have a drink containing alcohol: never AUDIT-C Alcohol total score: 0 Non-prescribed substance use: denies use Exam Narrative: Exam Narrative: General: Afebrile, no acute distress HEENT: Normocephalic, atraumatic, conjunctiva normal. MMM Neck: non-tender, supple Cardio: regular rate. regular rhythm Resp: Normal work of breathing, no respiratory distress, lungs clear bilaterally, no wheezing, rhonchi, rales Chest/Back: no visual signs of trauma, no midline tenderness, no CVA tenderness Abdomen: soft, non distension, no tenderness, no peritoneal signs Neuro: alert and fully oriented. CN II-XII grossly intact. Grossly normal strength and sensation in all extremities. MSK: no deformities. Normal range of motion Integumentary/Skin: no rash visualized, normal color Psych: normal affect, normal behavior Const: Vital Signs, click to edit/add: Vital Signs - 24 hr 08/20/25 19:22 08/20/25 22:29 Temperature 98.4 F 97.9 F Pulse Rate [Left P ulse Oximeter] 51 L 47 L Respiratory Rate 16 14 Blood Pressure [Ri ght Upper Arm] 160/88 H 155/88 H Pulse Oximetry 96 97 Oxygen Delivery Me thod Room Air Room Air Course Vital Signs Vital signs: Initial Vital Signs Temperature 98.4 F 08/20/25 19:22 Temperature Source Temporal Artery Scan 08/20/25 19:22 Pulse Rate 51 L 08/20/25 19:22 Pulse Rhythm Regular 08/20/25 19:22 Respiratory Rate 16 08/20/25 19:22 Blood Pressure 160/88 H 08/20/25 19:22 Blood Pressure Mean 112 H 08/20/25 19:22 Blood Pressure Position Sitting 08/20/25 19:22 Pulse Oximetry 96 08/20/25 19:22 Oxygen Delivery Method Room Air 08/20/25 19:22 Vital Signs Temperature 98.4 F 08/20/25 19:22 Pulse Rate 51 L 08/20/25 19:22 Respiratory Rate 16 08/20/25 19:22 Blood Pressure 160/88 H 08/20/25 19:22 Pulse Oximetry 96 08/20/25 19:22 Oxygen Delivery Method Room Air 08/20/25 19:22 Temperature 97.9 F 08/20/25 22:29 Pulse Rate 47 L 08/20/25 22:29 Respiratory Rate 14 08/20/25 22:29 Blood Pressure 155/88 H 08/20/25 22:29 Pulse Oximetry 97 08/20/25 22:29 Oxygen Delivery Method Room Air 08/20/25 22:29 Medical Decision Making MDM Narrative Medical decision making narrative: Otto is a 80 year male who presents the emergency department for mental health evaluation. Upon arrival patient is nontoxic appearing, afebrile, no distress. Patient, calm, cooperative, denies any homicide ideation, suicide ideation, intent to self-harm. I reviewed patient's recent a geriatric psychiatry notes, patient had been on donepezil in the past but stopped due to vivid dreaming. Bella recently had medication changes a few days ago on 08/15/25 with increase in sertraline, started on trazodone with a 2 week follow-up appointment to see how he is doing. Per notes if all the above are tried and if fail would maybe consider 2.5 mg of olanzapine however when he to review black box warning discussed this of medication side effects. Patient calm, cooperative in the ED. I discussed with patient, spouse, daughter, at this time I would not recommend starting a new medication as it has only been a few days. Discussed concerns with polypharmacy as well has black box warnings of olanzapine. At this time I would recommend continuing the sertraline and trazodone and given a 2 week trial, if increasing frequency of episodes were notify geriatric psychiatry provider, is significant worsening symptoms were severe episodes of agitation recommend returning to the emergency department. Also recommend keeping a log of episodes (time a day, duration). Patient, spouse, daughter agree with this plan Medical Records Medical records reviewed: Yes I reviewed the patient's medical records Discharge Plan Discharge Clinical Impression: Alzheimer's dementia, Agitation due to dementia Patient Disposition: Home, Self-Care Condition: Improved Additional Instructions: Please follow-up with your primary care provider and geriatric psychiatry at your currently scheduled appointment. Please continue your medications as previously directed. Please monitor symptoms/episodes of agitation. Please return to the ED if any woresning symptoms. It was a pleasure taking care of you today. Prescriptions: No Action sertraline 100 mg tablet 100 mg PO QAM acyclovir 400 mg tablet 400 mg PO BID prednisolone acetate 1 % drops,suspension ophthalmic (eye) Patient Comments: INSTILL 1 DROP INTO THE RIGHT EYE 4 TIMES A DAY FOR 3 DAYS, 3 TIMES A DAY FOR 3 DAYS, THEN TWICE A DAY FOR 3 DAYS, THEN EVERY MORNING UNTIL DIRECTED. Follow Up/Referrals: Elbert Espino MD [Primary Care Provider, [facility]] Stand Alone Forms: [employer] Info Instructions
[2025-08-20 22:29] VITALS: BP 155/88; PULSE 47; RESP 14; TEMP 36.6; O2SAT 97
== END 2025-08-20 23:32 | disposition home or self-care (01) ==
PROVIDERS: Emergency Provider Emergency Medicine; PCP Family Medicine
DX: G30.9 Alzheimer's disease, unspecified (principal); F02.811 Dementia in other diseases classified elsewhere, unspecified severity, with agitation
CPT/HCPCS: 99284; 99285